=== PATIENT | female | born 1985 | race Caucasian/White ===

== ENCOUNTER 2023-11-29 20:25 | Emergency (ER) | payer OTHER, SELFPAY ==
[2023-11-29 20:29] VITALS: BP 111/76
--- NOTE | 2023-11-29 20:38 | ED.GENMED ---
History of Present Illness
General
Chief Complaint: Weakness
Source: patient
Exam Limitations: none
Time Seen by Provider: 11/29/23 20:27
History of Present Illness
History of Present Illness:
This is a 38 year old homeless female that is brought in by Police. Patient was taken for incarceration and then c/o feeling weak. States that she his homeless and uses IV opioids, Cocaine, Fentanyl. and Xanax. States that she has not used in the
past 2 days. States that she has vomited twice and had diarrhea. States that she has a lung abscess and that she coughed up blood. Told by police that she got up and walked and when she got to the nurse for intake she c/o weakness. States that she
is SOB. Denies any fever, chills, chest pain, headache, dizziness, urinary burning.
Past History
Past History
ED Past Medical History: Other (Questionable lung abscess diagnosed beginning of 2023)
ED Past Surgical History: None
Social History
Tobacco: Smoker
Alcohol: Occasional
Drug: Cocaine, IVDA (Opioids, Fentanyl. ) and Other (Xanax)
Personal: Single
Living: homeless
Review of Systems
Review of Systems
All Other Systems: ROS reviewed and negative except as documented in HPI and ROS
Constitutional: Reports no symptoms; Denies fever or chills
EENT: Reports no symptoms
Respiratory: Reports trouble breathing; Denies cough
Cardiac: Reports no symptoms; Denies chest pain
ABD/GI: Reports abdominal pain, nausea, vomiting and diarrhea
: Reports no symptoms; Denies dysuria, frequency or urgency
Musculoskeletal: Reports no symptoms
Skin: Reports no symptoms
Neurological: Denies dizzy or headache
Psychiatric: Reports no symptoms
Phy Exam
General Physical Exam
General Presentation: no apparent distress
General age: appears older than age
General Skin: warm and dry
General Habitus: cachetic and poor hygiene
General Mental: alert
General Hydration: appears well hydrated
ENT Exam
ENT Exam: TM's normal, pharynx normal and neck supple
Eye Exam
Eye Exam: EOMI
Cardiovascular Exam
Cardiovascular Exam: regular rate/rhythm, no edema and normal peripheral pulses
Pulmonary Exam
Pulmonary Exam: lungs clear, no respiratory distress, no rales, chest non tender, no crackles, no rhonchi, no wheezing and no cough
Gastrointestinal Exam
Gastrointestinal Exam: soft, no organomegaly, no pulsatile mass, non distended and other (Hypoactive bowel sounds, Questionable generalized tenderness with palpation)
Musculoskeletal Exam
Musculoskeletal Exam: full ROM and no edema
Skin Exam
Skin Exam: normal color, warm/dry, no petechia and other (Scratch whittaker with scabbed area all over back and upper chest)
Psychiatric Exam
Psychiatric Exam: normal mood/affect
Scores
COW Clinical Opiate Withdrawal Scale
Resting Pulse Rate: 80 or below
Sweating-over past 30min not from room temp or activity: No report of chills or flushing
Restlessness-observation during assessment: Able to sit still
Pupil Size: Pupils pinned or normal size for room light
Bone or Joint Aches: Not present
Runny Nose or Tearing-not accounted for by cold/allergies: Not present
GI Upset-over last 30min: Vomiting or diarrhea
Tremor-observation of outstretched hands: No tremor
Yawning-observation during assessment: Yawning once or twice during assessment
Anxiety or Irritability: None
Gooseflesh Skin: Skin is smooth
Score: 4
Withdrawal Severity: Minimal Withdrawal
Course
Orders/Labs/Results
Orders:
Orders
11/29/23 20:37
Test Result ONCE
11/29/23 20:38
CR Chest - 2 Views Urgent
Comment:
Reason For Exam: SOB
11/29/23 20:48
Electrocardiogram (*1) Urgent
Reason for Study: Fatigue / Weakness
EKG- Treatment ONCE
11/29/23 20:55
Fentanyl, Urine Urgent
Urinalysis Reflex To Culture Urgent
Date Specimen was Collected: 11/29/23
Time Specimen was Collected: 20:41
Urine Drug Abuse Screen Urgent
Date Specimen was Collected: 11/29/23
Time Specimen was Collected: 20:41
Urine Microscopic Reflex Cult Urgent
Urine Culture Urgent
[place] Source: U
Specimen Description:
Date Specimen was Collected: 11/29/23
Time Specimen was Collected: 20:41
11/29/23 21:17
0.9% Sodium Chloride 1000 ml [Nss] 1,000 ml IV BOLUS
CefTRIAXone [Rocephin] 1,000 mg IV NOW STA
11/29/23 21:37
Complete Blood Count/With Diff Urgent
Comprehensive Metabolic Panel Urgent
HCG, Serum Qualitative Screen Urgent
Troponin I Urgent
11/29/23 21:46
Sterile Water [Sterile Water For Injection] 10 ml .ROUTE .STK-MED ONE
11/29/23 22:04
Sulfamethox./Trimethoprim Ds [Bactrim Ds 800 mg/160 mg] 1 tablet PO NOW STA
11/29/23 22:52
Doxycycline [Vibramycin] 100 mg PO NOW STA
Abnormal Lab Results
11/29/23 11/29/23
20:55 21:37
MCV 77.8 L fL
(81.0-99.0)
MCH 26.6 L pg
(27.0-31.0)
Absolute Lymphs (auto) 0.9 L 10^3/uL
(1.2-3.4)
Neutrophils % 79.5 H %
(42.2-75.2)
Lymphocytes % 11.5 L %
(20.5-51.1)
Glucose 107 H mg/dl
(70-99)
AST 38 H U/L
(14-36)
Total Protein 9.4 H g/dl
(6.3-8.2)
Urine Ketones 2+ A
(Negative)
Urine Bilirubin 1+ A
(Negative)
Urine Urobilinogen 3+ A
(Neg - 1+)
Leukocyte Esterase Rfl 2+ A
(Negative)
Urine WBC (Reflex) 11-15 A /HPF
(0-5)
Urine Bacteria (Reflex) Moderate A
(Negative)
Urine Fentanyl Screen Positive H
(Negative)
Urine Cocaine Screen Positive H
(Negative)
11/29/23 21:37
11/29/23 21:37
Urine positive for infection. glucose nonfasting. AST very slightly elevated. Total protein Slightly elevated. HCG negative. Urine positive for Fentanyl, Cocaine. Troponin <0.012
Vital Signs
Initial and Last Documented VS:
Initial Vital Signs
Temp Pulse Resp BP Pulse Ox
97.9 F 78 18 111/76 99
11/29/23 20:29 11/29/23 20:29 11/29/23 20:29 11/29/23 20:29 11/29/23 20:29
Last Documented Vital Signs
Temp Pulse Resp BP Pulse Ox
97.9 F 78 18 111/76 99
11/29/23 20:29 11/29/23 20:29 11/29/23 20:29 11/29/23 20:29 11/29/23 20:29
Certified Medical Technician Assistant consulted with Physician
Certified Medical Technician Assistant consulted with physician?: Yes
Name of Physician Consulted: Dr. Dunham
MDM/Problems Addressed
Differential Diagnosis Includes:
Weakness, PNA,
MDM/Problems Addressed:
This is a 38 year old female that was just picked up by police for incarceration. When checked by Nurse c/o weakness and would not stand up. Told by police that the patient was able to walk prior to this to get into there car without any difficulty.
Will check labs, X-ray
Back into see patient. Explained that she has a Urinary tract infection and there is a little Pneumonia. Will place patient on Doxycycline 100mg BID for the next 10 days. Patient to follow up with the [facility] doctor. Return with any concerns.
Chronic conditions affecting care:
NA
Acute Exacerbation and/or Progression of Chronic Illness:
NA
*Radiology
Radiology exam reviewed: radiology read reviewed (Chest-Small patchy right lower lobe opacity at least suspicious for Pneumonia. possible lower thoracic vertebral compression fracture, age indeterminate. )
*Pulse Oximetry
Patient hypoxic: no
*EKG
Interpreted by ED Provider?: Yes
Heart Rate: 71
Rate: normal
Rhythm: sinus arrhythmia
[place]: normal axis
Interval: normal interval
QRS Pattern: normal QRS
Ischemia: T-wave inversion (V1, V2, V3, Checked by Dr. Mckinney)
*Robotic Technician Interpretation
Rate: normal
Heart Rate: 70
Rhythm: sinus
*Critical Care Note
Total Time (30-74mins, 75-104mins- exclusive of procedures): Not Applicable
ED Attending Note
-
Portions of this chart may have been created with voice recognition software.� Occasional wrong word or��sound alike� substitutions may have occurred due to the inherent limitations of voice recognition software.
Discharge Plan
Departure
Patient Disposition: [facility]
Date of Disposition: 11/29/23
Time of Disposition: 22:55
Patient with high blood pressure during this ER visit?: No
Condition: Good
Covid-19: Not Applicable
Discharge Problem:
Urinary tract infection, Pneumonia
Instructions: Urinary Tract Infection, Adult (DC), Pneumonia, Adult (DC)
Prescriptions:
New
doxycycline hyclate 100 mg capsule
100 mg PO BID Qty: 19 0RF
Activity Restrictions/Additional Instructions:
As discussed, your blood work is normal. Your urine shows infection and that there is Cocaine and Fentanyl on board. Your chest x-ray shows that there is a small Pneumonia on the right base. You have been given oral antibiotics here and a
prescription for the next 10days. Follow up with the [facility] doctor. Tylenol or Ibuprofen for fever or body aches. IF YOU HAVE ANY OTHER CONCERNS PLEASE RETURN TO THE EMERGENCY ROOM. CLEARED FOR INCARCIRATION.
Interventions
Interventions:
*Risk Screen - Suicide Last Done: 11/29/23 20:29
*General Assessment Last Done: 11/29/23 20:29
*Neglect/Abuse Screening Last Done: 11/29/23 20:29
ED- Fall Risk Assessment Last Done: 11/29/23 21:14
ED- Cardiac Assessment Last Done: 11/29/23 21:14
ED- Neurological Assessment Last Done: 11/29/23 21:14
ED- Pulmonary Assessment Last Done: 11/29/23 21:14
[2023-11-29 20:39] VITALS: BP 111/76
[2023-11-29 21:02] LABS: Urine Albumin Trace (Neg - Trace); Urine Bilirubin 1+ (Negative); Urine Character Very Cloudy (Clear); Urine Color Yellow; Urine Glucose Negative (Negative); Urine Ketone 2+ (Negative); Urine Leukocyte 2+ (Negative); Urine Nitrite Negative (Negative); Urine Occult Blood Negative (Negative); Urine Specific Gravity 1.015 (<1.030); Urine Urobilinogen 3+ (Neg - 1+)
[2023-11-29 21:09] LABS: Urine Squamous Cell 0-2 /LPF (Few)
[2023-11-29 21:10] LABS: Urine Bacteria Moderate (Negative); Urine Red Blood Cell 0-2 /HPF (0-2)
[2023-11-29 21:14] LABS: Amphetamines Negative (Negative); Barbiturates Negative (Negative); Benzodiazepines Negative (Negative); Buprenorphine Negative (Negative); Cocaine Positive (Negative); Marijuana Negative (Negative); Methadone Negative (Negative); Methamphetamines Negative (Negative); Opiates Negative (Negative); Phencyclidine Negative (Negative); Tricyclic Antidepressants Negative (Negative)
[2023-11-29 21:35] LABS: Fentanyl, Urine Positive (Negative)
[2023-11-29 21:49] LABS: % Basophils 0.5 % (0-2); % Eosinophils 0.7 % (0-6); % Immature Granulocytes 0.3 % (0-0.5); % Lymphocytes 11.5 % (20.5-51.1); % Monocytes 7.5 % (1.7-9.3); % Neutrophils 79.5 % (42.2-75.2); Absolute Eosinophils 0.1 10^3/uL (0-0.7); Absolute Lymphocytes 0.9 10^3/uL (1.2-3.4); Absolute Monocytes 0.6 10^3/uL (0.1-0.6); Absolute Neutrophils 6.1 10^3/uL (1.4-6.5); Hematocrit 37.1 % (37.0-47.0); Hemoglobin 12.7 g/dL (12.0-16.0); Mean Corp Hgb Conc. 34.2 g/dL (33.0-37.0); Mean Corpuscular Hgb 26.6 pg (27.0-31.0); Mean Corpuscular Volume 77.8 fL (81.0-99.0); Nucleated Red Blood Cells % 0 %; Red Blood Cell Count 4.77 10^6/uL (4.20-5.40); Red Cell Dist. Width 14.3 % (11.5-14.5); White Blood Cell Count 7.6 10^3/uL (4.8-10.8)
[2023-11-29 22:01] LABS: ALT (SGPT) 25 U/L (0-35); AST (SGOT) 38 U/L (14-36); Albumin 4.3 g/dl (3.5-5.0); Alkaline Phosphatase 95 U/L (38-126); Blood Urea Nitrogen 10 mg/dl (7-17); Calcium 10.2 mg/dl (8.4-10.2); Carbon Dioxide 27 mmol/L (22-30); Chloride 104 mmol/L (98-107); Glucose 107 mg/dl (70-99); Sodium 141 mmol/L (135-145); Total Bilirubin 0.8 mg/dl (0.2-1.3); Total Protein 9.4 g/dl (6.3-8.2); eGFR > 60.00
[2023-11-29] MEDS: BACTRIM DS 800 MG/160 MG 1 TABLET PO (22:07)
[2023-11-29 22:12] LABS: Troponin I < 0.012 ng/ml
[2023-11-29 22:27] LABS: HCG, Serum Qualitative Screen Negative
[2023-11-29] MEDS: VIBRAMYCIN 100 MG PO (22:56)
[2023-11-29] MEDS: TORADOL 60 MG IM (23:00)
[2023-11-29 23:02] VITALS: BP 111/73
== END 2023-11-30 00:13 ==
LOC: EMR 20:25
PROVIDERS: Clinical Nurse Specialist Family Health; EMERGENCY PHYSICIAN Student in an Organized Health Care Education/Training Program
DX: N39.0 Urinary tract infection, site not specified (principal); J18.9 Pneumonia, unspecified organism; F17.200 Nicotine dependence, unspecified, uncomplicated
CPT/HCPCS: 99285; 96372; 71046; 80053; 80306; 80307; 81003; 81015; 84484; 84703; 85025; 87086; 93005